=== PATIENT | male | born 1970 | race Hispanic/Latino ===

== ENCOUNTER 2019-05-29 12:05 | Inpatient (IN) | payer BC ==
[~2019-05-29] VITALS: Ht 170.2 cm; Wt 87.9 kg
[2019-05-29] VITALS (30 sets, daily range): BP systolic 109–148; BP diastolic 79–104
[2019-05-29] MEDS ORDERED: NITROGLYCERIN 2 MG/VIAL VIAL IV ONE (12:46)
[2019-05-29] MEDS ORDERED: BIVALIRUDIN 250 MG/VIAL IV ONE (12:46)
[2019-05-29] MEDS ORDERED: IOHEXOL-350 50ML VIAL IV ONE (12:47)
[2019-05-29] MEDS ORDERED: LIDOCAINE HCL 2% 20ML ONE (12:47)
[2019-05-29] MEDS ORDERED: IOHEXOL 350 MG/ML 100ML INFUS..BTL IV ONE (12:47)
[2019-05-29] MEDS ORDERED: HEPARIN SODIUM 1000UNIT/ML 10ML VIAL ONE (14:18)
[2019-05-29] MEDS ORDERED: SODIUM CHLORIDE 0.9% 1000ML 1,000 ML IV SCH (14:44)
[2019-05-29] MEDS ORDERED: DEXTROSE 50%-WATER 50 ML DISP.SYRIN IV PRN (14:45)
[2019-05-29] MEDS ORDERED: METOPROLOL TARTRATE 1 MG/ML 5ML VIAL IV PRN (14:45)
[2019-05-29] MEDS ORDERED: GLUCAGON 1MG KIT 1 MG ML IM PRN (14:45)
[2019-05-29] MEDS ORDERED: PROPOFOL 1000 MG/100 ML 100 ML IV ONE ×2 (15:09→19:41)
[2019-05-29] MEDS ORDERED: SODIUM CHLORIDE 0.9% 500ML 500 ML IV ONE (15:38)
[2019-05-29] MEDS ORDERED: HEPARIN SOD IV SCH (16:15)
[2019-05-29] MEDS ORDERED: WATER IV SCH (16:15)
[2019-05-29] MEDS ORDERED: DEXTROSE 5% IV SCH (16:15)
[2019-05-29] MEDS: INSULIN HUMULIN R 100 UNIT/ML 3ML SQ SCH ×2 (16:30→21:00)
[2019-05-29] MEDS: LACTATED RINGERS 1000ML 1,000 ML IV SCH (17:00)
[2019-05-29 17:36] LABS: ABG BASE EXCESS -1.9 mmol/L (-2.0-3.0); ABG HCO3 23.1 mmol/L (21.0-28.0); ABG OXYGEN SATURATION 97.5 % (95.0-99.0); ABG PCO2 40 mmHg (35-48)
[2019-05-29 17:47] LABS: HEMATOCRIT 42.2 % (42-54); MEAN CORPUSCULAR HEMOGLOBIN 30.3 pg (27.0-33.0); MEAN CORPUSCULAR HGB CONC 34.1 g/dL (32.0-36.0); MEAN CORPUSCULAR VOLUME 88.7 fL (79-99); PLATELET COUNT (AUTO) 228 K/uL (130-400); RED BLOOD CELL COUNT(AUTO) 4.76 MIL/uL (4.50-6.20); RED CELL DISTRIBUTION WIDTH 12.1 % (11.0-15.5); WHITE BLOOD COUNT (AUTO) 14.3 K/uL (4.8-10.8)
[2019-05-29 17:55] LABS: CREATININE 1.2 mg/dL (0.5-1.5); POTASSIUM 4.3 mmol/L (3.5-5.1)
[2019-05-29 18:05] LABS: ALBUMIN 3.8 g/dL (3.5-5.0); BILIRUBIN,TOTAL 0.8 mg/dL (0.2-1.0); TOTAL PROTEIN, SERUM 7.9 g/dL (6.0-8.3)
[2019-05-29] MEDS ORDERED: AMIODARONE HCL 450 MG in DEXTROSE 5%-WATER 250 ML IV SCH (18:30)
[2019-05-29 18:44] LABS: LYMPHOCYTES % (MANUAL) 6 % (22-44); MONOCYTES % (MANUAL) 3 % (2-9); SEGMENTED NEUTROPHILS % 91 % (40-70)
[2019-05-29 18:45] LABS: MAN.DIFF COMMENT-IMPRESSION MANUAL DIFFERENTIAL; PLATELET MORPHOLOGY COMMENT ADEQUATE
[2019-05-29] MEDS ORDERED: CEFAZOLIN SODIUM 1 GM VIAL IVP PRN (18:45)
--- NOTE | 2019-05-29 19:00 | NUR ---
Bedside report received from Kim ODONNELL and all questions addressed. Impella to right groin, intubated and sedated with propofol.
--- NOTE | 2019-05-29 19:25 | NUR ---
Dr. Chen at bedside to reposition Impella.
[2019-05-29 20:41] LABS: TROPONIN I 4.07 ng/mL (0.00-0.06)
--- NOTE | 2019-05-29 21:29 | NUR ---
Patient temp 100.0 at 2015, ice packs applied. Temp 101.0 at 2100, cooling blanket applied.
[2019-05-29] MEDS ORDERED: ACETAMINOPHEN 325 MG TAB ONE (22:14)
[2019-05-29] MEDS: PROPOFOL 1000 MG/100 ML IV PRN (22:28)
[2019-05-29] MEDS ORDERED: ACETAMINOPHEN 325 MG TAB PO PRN (22:30)
[2019-05-30] VITALS (46 sets, daily range): BP systolic 86–155; BP diastolic 52–99
[2019-05-30] MEDS ORDERED: DEXTROSE 5%-WATER 1,000 ML IV ONE (00:01)
[2019-05-30] MEDS: PROPOFOL 1000 MG/100 ML IV PRN ×3 (00:39→05:35)
--- NOTE | 2019-05-30 01:00 | NUR ---
Patient returned to temperature of 97.5 at 0100
[2019-05-30] MEDS ORDERED: AMIODARONE HCL 50 MG/ML 3 ML VIAL ONE (01:22)
[2019-05-30 04:00] LABS: MEAN CORPUSCULAR HEMOGLOBIN 30.3 pg (27.0-33.0); MEAN CORPUSCULAR HGB CONC 34.4 g/dL (32.0-36.0); MEAN CORPUSCULAR VOLUME 88.2 fL (79-99); PLATELET COUNT (AUTO) 186 K/uL (130-400); RED BLOOD CELL COUNT(AUTO) 4.42 MIL/uL (4.50-6.20); RED CELL DISTRIBUTION WIDTH 12.4 % (11.0-15.5); WHITE BLOOD COUNT (AUTO) 9.8 K/uL (4.8-10.8)
--- NOTE | 2019-05-30 04:00 | NUR ---
Patient has been weaned off of propofol to check neurological status as per Dr. Jo, Patient shows signs of decerebrate posturing and fighting the ventilator. Dr. Jo notified of findings.
[2019-05-30 04:09] LABS: HEMOGLOBIN A1C 6.2 % (4.0-6.0); INR 1.02 (0.85-1.15); PARTIAL THROMBOPLASTIN TIME 25.7 SEC (26.3-35.5); PROTHROMBIN TIME 10.7 SEC (9.6-11.6)
[2019-05-30 04:24] LABS: ALBUMIN 3.4 g/dL (3.5-5.0); BILIRUBIN,TOTAL 1.1 mg/dL (0.2-1.0); CREATININE 0.9 mg/dL (0.5-1.5); POTASSIUM 3.9 mmol/L (3.5-5.1); TOTAL PROTEIN, SERUM 7.1 g/dL (6.0-8.3)
[2019-05-30 04:55] LABS: B-TYPE NATRIURETIC PEPTIDE 187 pg/mL (0-100)
[2019-05-30 05:10] LABS: BAND NEUTROPHILS % (MANUAL) 1 % (0-2); LYMPHOCYTES % (MANUAL) 12 % (22-44); MAN.DIFF COMMENT-IMPRESSION MANUAL DIFFERENTIAL; MONOCYTES % (MANUAL) 3 % (2-9); PLATELET MORPHOLOGY COMMENT ADEQUATE; REACTIVE LYMPHOCYTES 1 % (0-0); SEGMENTED NEUTROPHILS % 83 % (40-70)
[2019-05-30] MEDS: LACTATED RINGERS 1000ML 1,000 ML IV SCH (05:36)
--- NOTE | 2019-05-30 06:24 | NUR ---
Patient waking up and following commands and moving all extremities. Dr. Jo notified and MD ordered sedation to be resumed for patient safety.
[2019-05-30] MEDS ORDERED: NOREPINEPHRINE BITARTRATE 8 MG in DEXTROSE 5%-WATER 250 ML IV PRN (07:00)
[2019-05-30] MEDS ORDERED: EPINEPHRINE 10 MG in SODIUM CHLORIDE 0.9% 240 ML IV PRN (07:00)
[2019-05-30] MEDS ORDERED: AMINOCAPROIC ACID 15,000 MG in SODIUM CHLORIDE 0.9% 500ML 420 ML IV PRN (07:00)
[2019-05-30] MEDS ORDERED: NITROGLYCERIN 50 MG/D5% WATER 1 BOT ONE (07:28)
[2019-05-30] MEDS ORDERED: OCTYL 2-CYANOACRYLATE 1 EACH TP ONE (07:28)
[2019-05-30] MEDS ORDERED: CEFAZOLIN SODIUM 1 GM VIAL ONE (07:28)
[2019-05-30] MEDS ORDERED: PAPAVERINE HCL 30 MG/ML 2ML VIAL ONE (07:28)
--- NOTE | 2019-05-30 08:00 | NUR ---
TO O.R. VIA BED PORTABLE MONITORING, WITH R.T. AMBU-BAGGING, O.R. NURSES SECURING IMPELLA, ANESTHESIOLOGIST, AND DR JIMENEZ. SISTER, SON, AND FATHER STATED THEY WILL BE WAITING IN MAIN LOBBY.
[2019-05-30] MEDS ORDERED: ESMOLOL HCL 10 MG/ML 10 ML VIAL ONE (08:04)
[2019-05-30] MEDS ORDERED: LIDOCAINE PF 2% 5ML ABBOJECT ONE (08:04)
[2019-05-30] MEDS ORDERED: AMINOCAPROIC ACID 250 MG/ML 20 ML VIAL IV ONE (08:04)
[2019-05-30] MEDS ORDERED: HEPARIN SODIUM 1000UNIT/ML 10ML VIAL ONE (08:04)
[2019-05-30] MEDS ORDERED: EPINEPHRINE 1 MG/ML AMPULE ONE (08:04)
[2019-05-30] MEDS ORDERED: PROTAMINE SULFATE 10 MG/ML 25ML VIAL IV ONE (08:04)
[2019-05-30] MEDS ORDERED: SODIUM BICARB 50MEQ 50ML VIAL ONE ×2 (08:04→09:22)
[2019-05-30] MEDS ORDERED: NOREPINEPHRINE BITARTRATE 1 MG/1 ML ML IV ONE (08:04)
[2019-05-30] MEDS ORDERED: PROPOFOL 10 MG/ML 20ML VIAL IV ONE (08:04)
[2019-05-30] MEDS ORDERED: KETAMINE 50MG/ML SYRINGE 50 MG/ML DISP.SYRIN IV ONE (08:05)
[2019-05-30] MEDS ORDERED: ROCURONIUM 10MG/1ML SYR 10 MG/ML ML ONE (08:05)
[2019-05-30] MEDS ORDERED: MIDAZOLAM HCL 1 MG/ML 2ML VIAL ONE (08:05)
[2019-05-30] MEDS ORDERED: SUFENTANIL CITRATE 50 MCG/ML AMP ONE ×2 (08:08→09:38)
[2019-05-30 08:38] LABS: ABG BASE EXCESS -2.4 mmol/L (-2.0-3.0); ABG HCO3 21.2 mmol/L (21.0-28.0); ABG OXYGEN SATURATION 98.6 % (95.0-99.0); ABG PCO2 33 mmHg (35-48)
[2019-05-30] MEDS ORDERED: SODIUM CHLORIDE 0.9% 500ML 500 ML IV SCH (08:55)
[2019-05-30] MEDS ORDERED: CEFTRIAXONE SODIUM 500 MG VIAL IV SCH (09:00)
[2019-05-30] MEDS ORDERED: DEXTROSE 50%-WATER 50 ML DISP.SYRIN IV PRN (09:00)
[2019-05-30] MEDS ORDERED: ACETAMINOPHEN 650 MG SUPPOSITORY RC PRN (09:00)
[2019-05-30] MEDS ORDERED: PANTOPRAZOLE 40 MG/VIAL IVP SCH (09:00)
[2019-05-30] MEDS ORDERED: MORPHINE SULFATE 4 MG/1ML SYG IV PRN (09:00)
[2019-05-30] MEDS ORDERED: EPINEPHRINE 10 MG in DEXTROSE 5%-WATER 250 ML IV PRN (09:00)
[2019-05-30] MEDS ORDERED: ALBUMIN (HUMAN) 5% 250 ML IV PRN (09:00)
[2019-05-30] MEDS ORDERED: SODIUM CHLORIDE 0.9% 250 ML IV PRN (09:00)
[2019-05-30] MEDS: FAMOTIDINE/PF 20 MG/2 ML VIAL IV SCH ×2 (09:00→22:07)
[2019-05-30] MEDS ORDERED: GLUCAGON 1MG KIT 1 MG ML IM PRN (09:00)
[2019-05-30] MEDS ORDERED: SODIUM CHLORIDE 0.9% 10 ML VIAL IVP PRN (09:00)
[2019-05-30] MEDS ORDERED: ONDANSETRON HCL 4 MG/2 ML VIAL IV PRN (09:00)
[2019-05-30] MEDS ORDERED: NOREPINEPHRINE 4MG/NS 250ML 250 ML IV PRN (09:00)
[2019-05-30] MEDS ORDERED: ACETAMINOPHEN 325 MG TAB PO PRN ×2 (09:00)
[2019-05-30] MEDS ORDERED: MAGNESIUM 2GM PREMIX 50ML 50 ML IV PRN (09:00)
[2019-05-30] MEDS ORDERED: SODIUM CHLORIDE 0.9% 1000ML 1,000 ML IV SCH (09:00)
[2019-05-30] MEDS ORDERED: AMINOCAPROIC ACID 15,000 MG in SODIUM CHLORIDE 0.9% 250 ML IV SCH (09:00)
[2019-05-30] MEDS ORDERED: POTASSIUM PHOS 15 mMOL+NS250ML 250 ML IV PRN (09:00)
[2019-05-30] MEDS ORDERED: MORPHINE SULFATE 2 MG/ML 1ML SYG IV PRN (09:00)
[2019-05-30] MEDS ORDERED: NITROGLYCERIN 50 MG/D5% WATER 250 BOT IV SCH (09:00)
[2019-05-30] MEDS ORDERED: TRAMADOL HCL 50 MG TABLET PO PRN ×2 (09:00)
[2019-05-30 09:37] LABS: ABG BASE EXCESS -5.6 mmol/L (-2.0-3.0); ABG OXYGEN SATURATION 98.7 % (95.0-99.0); ABG PCO2 34 mmHg (35-48)
--- NOTE | 2019-05-30 10:05 | NUR ---
S/P CABG X2 RECEIVED FROM O.R. INTO CVR 212. SEDATED, INTUBATED; NON-RESPONSIVE. ET TUBE SECURE, R.T. HERE & CONNECTED ET TUBE TO VENT ON PRESCRIBED VENT SETTINGS. IMPELLA IN PLACE WITH CATHETER VIA RIGHT FEMORAL ARTERY. CHEST TUBES X2 SECURE & CONNECTED TO 20CM H2O SUCTION. LEVOPHED DRIP INFUSING AT 8MCG/MIN, EPINEPHRINE DRIP INFUSING AT 0.06MCG/KG/MIN, AND AMIKAR DRIP INFUSING AT 50ML/HR. WILL INITIATE CVR VENT AND DRIP WEANING PER PROTOCOL.
[2019-05-30 10:19] LABS: ABG BASE EXCESS -6.6 mmol/L (-2.0-3.0); ABG HCO3 19.3 mmol/L (21.0-28.0); ABG OXYGEN SATURATION 93.9 % (95.0-99.0); ABG PCO2 40 mmHg (35-48)
[2019-05-30 10:28] LABS: HEMATOCRIT 32.3 % (42-54); MEAN CORPUSCULAR HEMOGLOBIN 30.5 pg (27.0-33.0); MEAN CORPUSCULAR HGB CONC 33.7 g/dL (32.0-36.0); MEAN CORPUSCULAR VOLUME 90.5 fL (79-99); PLATELET COUNT (AUTO) 179 K/uL (130-400); RED BLOOD CELL COUNT(AUTO) 3.57 MIL/uL (4.50-6.20); RED CELL DISTRIBUTION WIDTH 12.5 % (11.0-15.5); WHITE BLOOD COUNT (AUTO) 22.5 K/uL (4.8-10.8)
[2019-05-30 10:39] LABS: INR 1.22 (0.85-1.15); PARTIAL THROMBOPLASTIN TIME 27.4 SEC (26.3-35.5); PROTHROMBIN TIME 12.7 SEC (9.6-11.6)
[2019-05-30 10:44] LABS: CREATININE 1.2 mg/dL (0.5-1.5); MAGNESIUM 1.6 mg/dL (1.80-2.40); PHOSPHORUS 4.1 mg/dL (2.5-4.9); POTASSIUM 3.1 mmol/L (3.5-5.1)
--- NOTE | 2019-05-30 10:45 | NUR ---
DR AMEZQUITA HERE TO SEE PT UPDATED. HE ASSESSED PT. ORDERED CT HEAD WITHOUT CONTRAST ONCE STABLE FOR TRANSFER
--- NOTE | 2019-05-30 10:45 | NUR ---
DR SANTANA HERE TO SEE PT UPDATED. NO NEW ORDERS FOR NOW.
--- NOTE | 2019-05-30 11:04 | NUR ---
DR JIMENEZ RECEIVED ORDER FROM DR JIMENEZ TO WEAN TO EXTUBATE.
[2019-05-30 11:40] LABS: ABG BASE EXCESS -3.1 mmol/L (-2.0-3.0); ABG HCO3 22.5 mmol/L (21.0-28.0); ABG OXYGEN SATURATION 93.8 % (95.0-99.0); ABG PCO2 42 mmHg (35-48)
[2019-05-30] MEDS: SODIUM BICARB 50MEQ 50ML VIAL IV PRN ×2 (11:44→12:01)
[2019-05-30] MEDS: POTASSIUM CHLORIDE 20MEQ/100ML 100 ML IV PRN ×6 (11:45→23:35)
[2019-05-30] MEDS: INSULIN REGULAR, HUMAN 3ML 100 UNIT in SODIUM CHLORIDE 0.9% 99 ML IV SCH ×4 (11:48→23:31)
--- NOTE | 2019-05-30 12:00 | NUR ---
ANXIETY WOKE UP ANXIOUS AND COMBATIVE. SITTING STRAIGHT UP IN BED, REACHING FOR LINES AND TUBES, BENDING BILATERAL KNEES. RE-ORIENTED TO TIME, PLACE, AND SITUATION. NODS HEAD WHEN ASKED IF HE CAN UNDERSTAND ME. CALMS DOWN FOR A FEW SECONDS WITH INSTRUCTION, BUT QUICKLY STARTS ANXIOUS AND COMBATIVE AGAIN. FLAILING ARMS ABOVE HEAD AND TURNING ON HIS SIDE AND THROWING RIGHT LEG OVER SIDE OF BED. INITIATED PROPOFOL. WILL CONTINUE TO MONITOR.
--- NOTE | 2019-05-30 12:30 | NUR ---
CALM WITH PROPOFOL SEDATION. V/S NOTED. IMPELLA PLACEMENT SECURED. - REFER TO FLOW SHEET.
[2019-05-30 12:53] LABS: ABG BASE EXCESS 1.1 mmol/L (-2.0-3.0); ABG HCO3 26.5 mmol/L (21.0-28.0); ABG OXYGEN SATURATION 97.3 % (95.0-99.0); ABG PCO2 46 mmHg (35-48)
--- NOTE | 2019-05-30 14:00 | NUR ---
TURNED OFF SEDATION PROMPTLY WOKE UP AND BEGAN ANXIOUS AND COMBATIVE AGAIN. NOW BECOMING TACHYCARDIC AND TACHYPNEIC. RE-ORIENTED AND PROVIDED WITH SAFETY INSTRUCTION, BUT CONTINUES MOVE AROUND IN BED VERY RESTLESS. REACHED, GRABBED, AND PULLED ON ET TUBE. REMOVED HIS HANDS, ET TUBE IN PLACE PREVIOUSLY NOTED AT 23CM LIP LEVEL, BILATERAL LUNG SOUNDS AUSCULTATED. PLACED A KNEE IMMOBILIZER TO RIGHT LEG IN ORDER TO PREVENT INJURY AND CATHETER DISLODGMENT. MEDICATED FOR PAIN. NUMEROUS ATTEMPTS MADE TO CALM AND COMFORT WITHOUT SUCCESS. PLACED BACK ON PROPOFOL. WILL CONTINUE TO MONITOR ABG'S.
[2019-05-30 14:32] LABS: ABG BASE EXCESS -2.4 mmol/L (-2.0-3.0); ABG HCO3 22.9 mmol/L (21.0-28.0); ABG PCO2 41 mmHg (35-48)
[2019-05-30] MEDS: CALCIUM GLUCONATE 1 GM in SODIUM CHLORIDE 0.9% 50 ML IV PRN ×2 (15:40→23:15)
[2019-05-30] MEDS: CEFAZOLIN SODIUM 1 GM VIAL IV SCH ×2 (15:43→22:07)
[2019-05-30] MEDS: PROPOFOL 1000 MG/100 ML 100 ML IV PRN ×2 (15:54→16:25)
[2019-05-30 17:46] LABS: ABG BASE EXCESS 1.3 mmol/L (-2.0-3.0); ABG HCO3 25.9 mmol/L (21.0-28.0); ABG OXYGEN SATURATION 96.4 % (95.0-99.0); ABG PCO2 41 mmHg (35-48)
[2019-05-30] MEDS ORDERED: CALCIUM GLUCONATE 1 GM/10 ML VIAL IV ONE ×3 (18:59→23:12)
[2019-05-30] MEDS ORDERED: ALBUMIN (HUMAN) 5% 250 ML IV ONE (19:21)
[2019-05-30] MEDS ORDERED: ALBUMIN (HUMAN) 5% 250 ML IV SCH (19:30)
[2019-05-30 19:57] LABS: ABG BASE EXCESS 1.1 mmol/L (-2.0-3.0); ABG HCO3 25.1 mmol/L (21.0-28.0); ABG OXYGEN SATURATION 96.6 % (95.0-99.0); ABG PCO2 37 mmHg (35-48)
--- NOTE | 2019-05-30 21:00 | NUR ---
Received patient at shift change intubated and sedated. Propofol turned off at 1900 and patient following commands but continues to thrash around in the bed. ABG within extubation parameters and patient passed NIF and VC. Patient extubated at 2050 to 40% aerosol mask.
[2019-05-30] MEDS: ATORVASTATIN CALCIUM 20 MG TABLET PO SCH (22:07)
--- NOTE | 2019-05-30 22:46 | NUR ---
Patient continues to move wildly around in the bed and tends to forget what happened to him. Patient alert and oriented to self but not to time or situation. Staff orients patient frequently. Family called in to sit with patient at bedside because of his wild behavior.
[2019-05-30 22:49] LABS: ABG BASE EXCESS 1.8 mmol/L (-2.0-3.0); ABG OXYGEN SATURATION 97.1 % (95.0-99.0); ABG PCO2 39 mmHg (35-48)
[2019-05-31] VITALS (70 sets, daily range): BP systolic 0–285; BP diastolic 0–284
[2019-05-31 04:08] LABS: HEMATOCRIT 25.1 % (42-54); MEAN CORPUSCULAR HEMOGLOBIN 29.7 pg (27.0-33.0); MEAN CORPUSCULAR HGB CONC 33.1 g/dL (32.0-36.0); PLATELET COUNT (AUTO) 91 K/uL (130-400); RED BLOOD CELL COUNT(AUTO) 2.79 MIL/uL (4.50-6.20); RED CELL DISTRIBUTION WIDTH 12.8 % (11.0-15.5); WHITE BLOOD COUNT (AUTO) 9.7 K/uL (4.8-10.8)
[2019-05-31] MEDS ORDERED: CALCIUM GLUCONATE 1 GM/10 ML VIAL IV ONE (04:13)
[2019-05-31 04:20] LABS: ABG BASE EXCESS -0.4 mmol/L (-2.0-3.0); ABG HCO3 24.5 mmol/L (21.0-28.0); ABG OXYGEN SATURATION 96.2 % (95.0-99.0); ABG PCO2 41 mmHg (35-48)
[2019-05-31 04:35] LABS: CREATININE 0.9 mg/dL (0.5-1.5); MAGNESIUM 2.2 mg/dL (1.80-2.40); PHOSPHORUS 2.6 mg/dL (2.5-4.9); POTASSIUM 3.9 mmol/L (3.5-5.1)
[2019-05-31] MEDS: POTASSIUM CHLORIDE 20MEQ/100ML 100 ML IV PRN (04:48)
[2019-05-31] MEDS: CEFAZOLIN SODIUM 1 GM VIAL IV SCH (04:49)
[2019-05-31 04:56] LABS: INR 1.09 (0.85-1.15); PARTIAL THROMBOPLASTIN TIME 31.7 SEC (26.3-35.5); PROTHROMBIN TIME 11.4 SEC (9.6-11.6)
[2019-05-31] MEDS: FAMOTIDINE/PF 20 MG/2 ML VIAL IV SCH ×2 (08:53→21:00)
[2019-05-31] MEDS: ASPIRIN 325MG EC TAB 325 MG TABLET.DR PO SCH (08:53)
[2019-05-31] MEDS: FUROSEMIDE 10 MG/ML 2ML VIAL IV SCH ×2 (08:53→21:00)
--- NOTE | 2019-05-31 09:00 | NUR ---
CHELITA WELCH, [employer]onet. HERE TO SEE PT. UPDATED. PLAN FOR DR BECKFORD TO COME THIS AM TO REMOVE IMPRELLA.
--- NOTE | 2019-05-31 09:41 | NUR ---
DR SANTANA HERE TO SEE PT UPDATED. NO NEW ORDERS AT THIS TIME.
--- NOTE | 2019-05-31 09:55 | NUR ---
Patient is not ready for Physical Therapy Evaluation this AM as per BELLE Dao Addendum: 05/31/19 at 1449 by JOSE MANUEL IRIZARRY PT PT Amended: Links added.
[2019-05-31] MEDS ORDERED: FENTANYL CITRATE PF 50 MCG/1 ML 2ML VIAL ONE (10:33)
--- NOTE | 2019-05-31 10:35 | NUR ---
dr jayme beckford/mo impella DR KASEY BECKFORD HERE. PULLED OUT IMPELLA PER PROTOCOL. HE HELD PRESSURE FOR 10 MINUTES, THEN I TOOK OVER. I HELD PRESSURE FOR 40MINUTES TOTAL PER PROTOCOL. HEMOSTASIS NOT ACHIEVED. HELD PRESSURE FOR 10 MORE MINUTES, NOTIFIED PROGRAMMING INTERN. DAY PATIENT AND MULTI SKILLED OPERATOR NURSES HERE TO ASSIST WITH HOLDING PRESSURE.
--- NOTE | 2019-05-31 12:47 | NUR ---
JARETH PLAN VISITED WITH PATIENT. PATIENT IN CVR NO FAMILY. DOROTHEA WILL CONTINUE TO FOLLOW. Addendum: 05/31/19 at 1248 by NINFA ELIAS RN CM Amended: Links added.
[2019-05-31] MEDS: CEFTRIAXONE SODIUM 1 GM IV SCH (13:18)
--- NOTE | 2019-05-31 13:26 | NUR ---
Pressure Pressure applied post impella removal. Pt tolerated with small amount of pain. Soft to touch, pedal pulses with doppler.
[2019-05-31] MEDS: ATORVASTATIN CALCIUM 20 MG TABLET PO SCH (21:00)
[2019-05-31] MEDS: METOPROLOL TARTRATE 25 MG TAB PO SCH (21:30)
[2019-05-31] MEDS: LISINOPRIL 5 MG TABLET PO SCH (21:30)
[2019-06-01] VITALS (48 sets, daily range): BP systolic 97–145; BP diastolic 49–75
[2019-06-01 05:32] LABS: HEMATOCRIT 25.2 % (42-54); MEAN CORPUSCULAR HGB CONC 33.3 g/dL (32.0-36.0); PLATELET COUNT (AUTO) 136 K/uL (130-400); RED CELL DISTRIBUTION WIDTH 12.6 % (11.0-15.5); WHITE BLOOD COUNT (AUTO) 11.3 K/uL (4.8-10.8)
[2019-06-01 05:48] LABS: POTASSIUM 3.8 mmol/L (3.5-5.1)
[2019-06-01 08:34] LABS: ALBUMIN 3.1 g/dL (3.5-5.0); BILIRUBIN,TOTAL 0.6 mg/dL (0.2-1.0); TOTAL PROTEIN, SERUM 6.7 g/dL (6.0-8.3)
[2019-06-01] MEDS: ASPIRIN 325MG EC TAB 325 MG TABLET.DR PO SCH (08:37)
[2019-06-01] MEDS: METOPROLOL TARTRATE 25 MG TAB PO SCH ×2 (08:37→20:28)
[2019-06-01] MEDS: LISINOPRIL 5 MG TABLET PO SCH ×2 (08:38→20:27)
[2019-06-01] MEDS: CEFTRIAXONE SODIUM 1 GM IV SCH (08:38)
[2019-06-01] MEDS: FUROSEMIDE 20 MG TABLET PO SCH ×2 (08:38→17:56)
[2019-06-01] MEDS: FAMOTIDINE/PF 20 MG/2 ML VIAL IV SCH (08:39)
[2019-06-01] MEDS: POTASSIUM CHLORIDE 20MEQ/100ML 100 ML IV PRN (08:53)
--- NOTE | 2019-06-01 09:09 | NUR ---
DCP On 05/31/2019, SW attempted to complete assessment with patient but nurses were attending to patient. SW will continue to follow up.
--- NOTE | 2019-06-01 09:36 | NUR ---
INITIAL Patient lives with parents. Emergency contact is sister, Taylor Brown, [phone]. No home services or DME. Patient is presently employed loan services professional. Patient was able to complete ADL's independently before surgery. He does not drive. PCP is Dr. Desean Hernández. Pharmacy is [facility] in [place]. DCP is home. Patient states he has plenty of support at home. Addendum: 06/01/19 at 0938 by GOLDEN DOOLEY SS Amended: Links added.
[2019-06-01] MEDS: INSULIN HUMULIN R 100 UNIT/ML 3ML SQ SCH ×2 (16:18→20:46)
[2019-06-01] MEDS: ATORVASTATIN CALCIUM 20 MG TABLET PO SCH (20:27)
[2019-06-01] MEDS: FAMOTIDINE 20MG TAB 20 MG TAB PO SCH (20:28)
[2019-06-02] VITALS (19 sets, daily range): BP systolic 110–160; BP diastolic 48–80
[2019-06-02 04:45] LABS: HEMATOCRIT 23.5 % (42-54); MEAN CORPUSCULAR HEMOGLOBIN 30.3 pg (27.0-33.0); PLATELET COUNT (AUTO) 154 K/uL (130-400); RED BLOOD CELL COUNT(AUTO) 2.64 MIL/uL (4.50-6.20); RED CELL DISTRIBUTION WIDTH 12.4 % (11.0-15.5); WHITE BLOOD COUNT (AUTO) 9.3 K/uL (4.8-10.8)
[2019-06-02 05:06] LABS: CREATININE 0.9 mg/dL (0.5-1.5); POTASSIUM 3.5 mmol/L (3.5-5.1)
[2019-06-02] MEDS: INSULIN HUMULIN R 100 UNIT/ML 3ML SQ SCH ×4 (06:37→20:54)
[2019-06-02] MEDS ORDERED: POTASSIUM CHLORIDE 10% ELIXIR 20 MEQ/15 ML UDCUP PO PRN (08:00)
[2019-06-02] MEDS ORDERED: LIDOCAINE HCL-MPF 1% 2ML VIAL IV PRN (08:00)
[2019-06-02] MEDS: METOPROLOL TARTRATE 25 MG TAB PO SCH ×2 (08:59→20:18)
[2019-06-02] MEDS: FAMOTIDINE 20MG TAB 20 MG TAB PO SCH ×2 (09:00→20:18)
[2019-06-02] MEDS: LISINOPRIL 5 MG TABLET PO SCH ×2 (09:00→20:18)
[2019-06-02] MEDS: CEFTRIAXONE SODIUM 1 GM IV SCH (09:00)
[2019-06-02] MEDS: ASPIRIN 325MG EC TAB 325 MG TABLET.DR PO SCH (09:01)
[2019-06-02] MEDS: FUROSEMIDE 20 MG TABLET PO SCH ×2 (09:01→17:58)
[2019-06-02] MEDS: ENOXAPARIN SODIUM 30 MG/0.3 ML SQ SCH (09:02)
[2019-06-02] MEDS: POTASSIUM CHLORIDE 20 MEQ ERTAB PO PRN ×2 (09:06→13:07)
[2019-06-02 09:18] LABS: ALBUMIN 2.9 g/dL (3.5-5.0); BILIRUBIN,TOTAL 0.6 mg/dL (0.2-1.0); TOTAL PROTEIN, SERUM 6.6 g/dL (6.0-8.3)
--- NOTE | 2019-06-02 13:13 | NUR ---
Patient downgraded to PCCU status. Rehab Director Occupational Therapist made aware. Pending room to be available at this time.
[2019-06-02] MEDS: ATORVASTATIN CALCIUM 20 MG TABLET PO SCH (20:18)
--- NOTE | 2019-06-02 21:20 | NUR ---
TRANSFER PT TRANSFERRED TO ROOM 229 AT THIS TIME VIA WHEEL CHAIR PLACED ON TELE MONITOR AND ALL BELONGING TAKEN WITH PT. REPORT GIVEN TO BLANCHE ODONNELL.
[2019-06-03 00:01] VITALS: BP 113/70
[2019-06-03 03:43] VITALS: BP 144/82
[2019-06-03 05:16] LABS: HEMATOCRIT 26.3 % (42-54); MEAN CORPUSCULAR HGB CONC 33.5 g/dL (32.0-36.0); MEAN CORPUSCULAR VOLUME 89.8 fL (79-99); NUCLEATED RED BLOOD CELLS 0.2 % (0.0-0.19); PLATELET COUNT (AUTO) 213 K/uL (130-400); RED BLOOD CELL COUNT(AUTO) 2.93 MIL/uL (4.50-6.20); RED CELL DISTRIBUTION WIDTH 12.1 % (11.0-15.5); WHITE BLOOD COUNT (AUTO) 8.3 K/uL (4.8-10.8)
[2019-06-03 05:35] LABS: POTASSIUM 4.5 mmol/L (3.5-5.1)
[2019-06-03] MEDS: INSULIN HUMULIN R 100 UNIT/ML 3ML SQ SCH ×2 (06:30→11:30)
[2019-06-03 07:00] VITALS: BP 131/74
[2019-06-03] MEDS ORDERED: METOPROLOL TARTRATE 50 MG TAB PO SCH (09:00)
[2019-06-03] MEDS: CEFTRIAXONE SODIUM 1 GM IV SCH (09:00)
[2019-06-03] MEDS ORDERED: LISINOPRIL 10 MG TABLET PO SCH (09:00)
[2019-06-03] MEDS: ENOXAPARIN SODIUM 30 MG/0.3 ML SQ SCH (09:00)
[2019-06-03] MEDS ORDERED: FURO20TA6 PO (10:07)
[2019-06-03] MEDS ORDERED: LISI10TA7 PO (10:07)
[2019-06-03] MEDS ORDERED: ATOR20TA65 PO (10:07)
[2019-06-03] MEDS ORDERED: METO50 PO (10:07)
[2019-06-03] MEDS: FAMOTIDINE 20MG TAB 20 MG TAB PO SCH (10:28)
[2019-06-03] MEDS: ASPIRIN 325MG EC TAB 325 MG TABLET.DR PO SCH (10:28)
[2019-06-03] MEDS: FUROSEMIDE 20 MG TABLET PO SCH (10:28)
[2019-06-03 11:00] VITALS: BP 128/78
== END 2019-06-03 12:25 | disposition home or self-care (01) | DRG 215 ==
LOC: UNDOADMIN 12:05 → EDHIP 12:05 → 2BH 13:26 → 2CV 05-30 08:23 → 2CH 05-31 14:23 → 2AH 06-02 21:07
PROVIDERS: ADMIT Hospitalist; ATTEND Hospitalist
PROC: 02HA3RZ Insertion of Short-term External Heart Assist System into Heart, Percutaneous Approach (ICD-10-PCS; principal; 2019-05-29)
PROC: 5A0221D Assistance with Cardiac Output using Impeller Pump, Continuous (ICD-10-PCS; 2019-05-29)
PROC: 4A023N7 Measurement of Cardiac Sampling and Pressure, Left Heart, Percutaneous Approach (ICD-10-PCS; 2019-05-29)
PROC: B2111ZZ Fluoroscopy of Multiple Coronary Arteries using Low Osmolar Contrast (ICD-10-PCS; 2019-05-29)
PROC: B2151ZZ Fluoroscopy of Left Heart using Low Osmolar Contrast (ICD-10-PCS; 2019-05-29)
PROC: 5A12012 Performance of Cardiac Output, Single, Manual (ICD-10-PCS; 2019-05-29)
PROC: 5A1945Z Respiratory Ventilation, 24-96 Consecutive Hours (ICD-10-PCS; 2019-05-29)
PROC: 0BH17EZ Insertion of Endotracheal Airway into Trachea, Via Natural or Artificial Opening (ICD-10-PCS; 2019-05-29)
PROC: 021009W Bypass Coronary Artery, One Artery from Aorta with Autologous Venous Tissue, Open Approach (ICD-10-PCS; 2019-05-30)
PROC: 06BQ4ZZ Excision of Left Saphenous Vein, Percutaneous Endoscopic Approach (ICD-10-PCS; 2019-05-30)
PROC: 02100Z9 Bypass Coronary Artery, One Artery from Left Internal Mammary, Open Approach (ICD-10-PCS; 2019-05-30 08:05)
PROC: 02PA3RZ Removal of Short-term External Heart Assist System from Heart, Percutaneous Approach (ICD-10-PCS; 2019-06-01)
DX: I21.4 Non-ST elevation (NSTEMI) myocardial infarction (principal); J96.01 Acute respiratory failure with hypoxia; I46.2 Cardiac arrest due to underlying cardiac condition; I49.01 Ventricular fibrillation; I50.41 Acute combined systolic (congestive) and diastolic (congestive) heart failure; K72.00 Acute and subacute hepatic failure without coma; G93.1 Anoxic brain damage, not elsewhere classified; I47.2 Ventricular tachycardia; J98.11 Atelectasis; N17.9 Acute kidney failure, unspecified; I25.10 Atherosclerotic heart disease of native coronary artery without angina pectoris; D50.0 Iron deficiency anemia secondary to blood loss (chronic); D69.6 Thrombocytopenia, unspecified; E66.9 Obesity, unspecified; E78.00 Pure hypercholesterolemia, unspecified; I11.0 Hypertensive heart disease with heart failure; Z68.30 Body mass index [BMI] 30.0-30.9, adult; I25.2 Old myocardial infarction; E87.70 Fluid overload, unspecified
CPT/HCPCS: 33990; 36415; 36600; 71045; 80048; 80053; 80061; 82330; 82435; 82550; 82803; 82947; 82948; 83036; 83605; 83735; 83874; 83880; 84100; 84132; 84295; 84484; 85018; 85025; 85027; 85347; 85610; 85730; 86850; 86900; 86901; 86922; 93005; 93306; 93308; 93356; 93458; 93880; 94002; 94003; 94150; 97039; A4357; A7048; C1894; C9113; G0378; J0171; J0282; J0583; J0610; J0690; J0696; J1644; J1650; J1815; J1940; J2001; J2250; J2270; J2405; J2440; J2704; J2720; J3010; J3475; J3480; J3490; J7030; J7040; J7060; J7070; J7120; P9045; Q9967